=== PATIENT | male | born 1960 | race Caucasian/White ===

== ENCOUNTER 2016-07-22 07:34 | Outpatient (CLI) | payer BC ==
[~2016-07-22 07:34] MED LIST: ADVIL200 MG PO; ASPIR-LOW81 MG PO; ELIQUIS5 MG PO; IBUPROFEN800 MG PO; LOPRESSOR50 MG PO; MOTRIN600 MG PO; OMEPRAZOLE40 M1 PO; PERCOCET 5/31 TABLET PO; PROTONIX20 MG PO; REGLAN10 MG PO; TAPAZOLE10 MG PO
== END 2016-07-23 11:59 | disposition home or self-care (01) ==
LOC: NUC 07:34
DX: E05.00 Thyrotoxicosis with diffuse goiter without thyrotoxic crisis or storm (principal)
CPT/HCPCS: 78014; 78999; A9512; A9531

== ENCOUNTER 2017-07-24 16:36 | Emergency (ER) | payer BC ==
[~2017-07-24] VITALS: Ht 180.3 cm; Wt 100.0 kg
[2017-07-24 22:00] VITALS: BP 134/79
== END 2017-07-24 22:00 | disposition home or self-care (01) ==
LOC: EME 16:36
DX: R51 Headache (principal); R11.0 Nausea; H53.149 Visual discomfort, unspecified; Z79.01 Long term (current) use of anticoagulants; Z87.891 Personal history of nicotine dependence
CPT/HCPCS: 70450; 99281; 99284; J1885; J7030

== ENCOUNTER 2017-07-27 12:18 | Emergency (ER) | payer BC ==
[~2017-07-27] VITALS: Ht 180.3 cm; Wt 109.2 kg
[2017-07-27 14:10] LABS: HEMATOCRIT 39.7 % (38.0-50.0); HEMOGLOBIN 13.6 G/DL (12.5-16.6); MCH 32.3 PG (29.0-34.0); MCHC 34.3 G/DL (30.0-36.0); MCV 94.3 FL (86-99); PLATELET COUNT 178 K/uL (156-360); RBC DIS.WIDTH-CV 12.6 % (11.8-14.6); RBC DIS.WIDTH-SD 43.5 % (39-53); RED BLOOD COUNT 4.21 M/uL (4.00-5.50); WHITE BLOOD COUNT 7.1 K/uL (4.1-10.2)
[2017-07-27 14:19] LABS: CHLORIDE 109 mEq/L (99-109)
[2017-07-27 14:20] LABS: SODIUM 140 mEq/L (136-147)
[2017-07-27 14:21] LABS: GLUCOSE 87 mg/dL (70-99)
[2017-07-27] MEDS ORDERED: FIORICET 50-301 EAC1 PO (14:23)
[2017-07-27 14:25] LABS: GFR ESTIMATE (CALCULATED) > 59 mL/min/ (58.99-99999)
[2017-07-27 14:26] LABS: UREA NITROGEN (BUN) 11 mg/dL (9-23)
[2017-07-27 14:35] VITALS: BP 132/76
== END 2017-07-27 14:36 | disposition home or self-care (01) ==
LOC: EME 12:18
PROVIDERS: Nurse Practitioner Family
DX: G43.909 Migraine, unspecified, not intractable, without status migrainosus (principal); E05.90 Thyrotoxicosis, unspecified without thyrotoxic crisis or storm; F17.200 Nicotine dependence, unspecified, uncomplicated; F32.9 Major depressive disorder, single episode, unspecified; K21.9 Gastro-esophageal reflux disease without esophagitis; Z88.5 Allergy status to narcotic agent
CPT/HCPCS: 80048; 85027; 99281; 99285; J1200; J1885; J2765; J7030

== ENCOUNTER 2018-01-27 17:37 | Observation (INO) | payer BC ==
[~2018-01-27] VITALS: Ht 180.3 cm; Wt 106.6 kg
[~2018-01-27 17:37] MED LIST changes: +FIORICET 50-301 EAC1 PO
[2018-01-27 20:00] LABS: HEMATOCRIT 42.5 % (38.0-50.0); HEMOGLOBIN 14.8 G/DL (12.5-16.6); MCH 31.7 PG (29.0-34.0); MCHC 34.8 G/DL (30.0-36.0); PLATELET COUNT 210 K/uL (156-360); RBC DIS.WIDTH-CV 14.3 % (11.8-14.6); RBC DIS.WIDTH-SD 47.8 % (39-53); RED BLOOD COUNT 4.67 M/uL (4.00-5.50); WHITE BLOOD COUNT 10.9 K/uL (4.1-10.2)
[2018-01-27 20:11] LABS: ALBUMIN 4.4 g/dL (3.2-4.8); CHLORIDE 107 mEq/L (99-109); SODIUM 142 mEq/L (136-147)
[2018-01-27 20:13] LABS: GLUCOSE 90 mg/dL (70-99)
[2018-01-27 20:14] LABS: TOTAL PROTEIN 7.1 g/dL (6.4-8.3)
[2018-01-27 20:15] LABS: TOTAL BILIRUBIN 0.3 mg/dL (0.0-1.0)
[2018-01-27 20:17] LABS: ALKALINE PHOSPHATASE 69 IU/L (3-129); GFR ESTIMATE (CALCULATED) > 59 mL/min/ (58.99-99999)
[2018-01-27 20:18] LABS: UREA NITROGEN (BUN) 12 mg/dL (9-23)
[2018-01-27 20:19] LABS: AST (GOT) 21 IU/L (2-34)
[2018-01-27 20:20] LABS: ALT (GPT) 16 IU/L (3-49); LIPASE 40 U/L (1.0-51.0)
[2018-01-27 20:23] LABS: TROP-I INTERPRETATION NEGATIVE; TROPONIN-I < 0.01 ng/mL (0.0-0.30)
[2018-01-27] MEDS ORDERED: LEVOTHYROXINE150 MCG PO (21:19)
[2018-01-27] MEDS ORDERED: VITAMIN D33000 UNIT PO (21:21)
[2018-01-27] MEDS ORDERED: MULTI-VITAMIN1 EAC4 PO (21:23)
[2018-01-27] MEDS ORDERED: LO-DOSE ASPIRIN81 M2 PO (21:25)
[2018-01-27 22:41] VITALS: BP 135/75
[2018-01-28 02:33] LABS: TROP-I INTERPRETATION NEGATIVE; TROPONIN-I < 0.01 ng/mL (0.0-0.30)
[2018-01-28 05:10] VITALS: BP 104/62
[2018-01-28 07:34] VITALS: BP 105/67
[2018-01-28 10:51] LABS: TROP-I INTERPRETATION NEGATIVE; TROPONIN-I < 0.01 ng/mL (0.0-0.30)
== END 2018-01-28 11:39 | disposition home or self-care (01) ==
LOC: EME 17:37 → EDOF 21:51 → 4SOUTH 21:51 → EDOF 21:51 → ENRESERV 21:54 → 4SOUTH 22:35
PROVIDERS: Emergency Medicine; Physician Assistant
DX: R07.9 Chest pain, unspecified (principal); E89.0 Postprocedural hypothyroidism; K21.9 Gastro-esophageal reflux disease without esophagitis; R06.02 Shortness of breath; M54.9 Dorsalgia, unspecified; Z98.1 Arthrodesis status; Z82.49 Family history of ischemic heart disease and other diseases of the circulatory system; Z82.0 Family history of epilepsy and other diseases of the nervous system; Z83.49 Family history of other endocrine, nutritional and metabolic diseases; Z81.1 Family history of alcohol abuse and dependence; F17.210 Nicotine dependence, cigarettes, uncomplicated; Z88.8 Allergy status to other drugs, medicaments and biological substances; Z91.048 Other nonmedicinal substance allergy status; Z79.82 Long term (current) use of aspirin
CPT/HCPCS: 71045; 71275; 80048; 80053; 83690; 84484; 85027; 93005; 99281; 99285; G0378